=== PATIENT | male | born 1945 | race Caucasian/White ===

== ENCOUNTER 2022-01-28 08:47 | Emergency (ER) | payer MEDICARE, OTHER ==
[~2022-01-28] VITALS: Ht 175.3 cm; Wt 95.3 kg
[~2022-01-28 08:47] MED LIST: CEFTRIAXON2 GM/50 ML IVP; CENTRUM SILVER1 EAC1 PO; CITALOPRAM HBR10 MG PO; FISH OIL QD; FUROSEMIDE20 MG PO; FUROSEMIDE40 MG PO; GENERLAC10 GM/15 M PO; HEPARIN SO5000 UNIT/ IV; LACTULOSE20 GM/30 M PO; LEVOFLOXACIN500 MG PO; MIDODRINE HCL5 MG PO; MULTIVITAMIN QD; NASONEX17 GM; OMEPRAZOLE; OMEPRAZOLE20 M1 PO; PRILOSEC20 MG PO; SPIRONOLACTONE100 MG PO; SPIRONOLACTONE50 MG PO; SUCRALFATE; TUMS; TUMS300 MG PO; VITAMIN D32000 UNIT PO; XIFAXAN550 MG PO; Z.0.PREDNISONE10 M1 PO; Z.1.AMOXICILLIN500 M PO; [UNRECOGNIZED DRUG - OTHER]; [UNRECOGNIZED DRUG - OTHER] PO; [UNRECOGNIZED DRUG - OTHER] PO
[2022-01-28 09:15] LABS: BASOPHILS # (AUTO) 0.1 (0.0-0.1); BASOPHILS % 0.9 % (0.0-1.0); EOSINOPHILS # (AUTO) 0.1 (0.0-0.4); EOSINOPHILS % 2.4 % (0.0-6.0); HEMATOCRIT 43.2 % (38.2-49.6); HEMOGLOBIN 14.4 g/dL (14.0-18.0); LYMPHOCYTES # (AUTO) 0.4 (1.0-3.2); MEAN CORPUSCULAR HEMOGLOBIN 33.8 pg (28-32); MEAN CORPUSCULAR HGB CONC 33.3 g/dL (31-35); MEAN CORPUSCULAR VOLUME 101.4 fL (81-99); MONOCYTES # (AUTO) 0.6 (0.2-0.8); MONOCYTES % 9.9 % (4.4-11.3); NEUTROPHILS # (AUTO) 4.7 (2.1-6.9); NEUTROPHILS % 80.6 % (38.7-80.0); PLATELET COUNT 84 x10e3/uL (140-360); RED BLOOD COUNT 4.26 x10e6/uL (4.3-5.7); RED CELL DISTRIBUTION WIDTH 13.4 % (11.7-14.4)
[2022-01-28 09:34] LABS: INR 1.14; PROTHROMBIN TIME 15.6 seconds (11.9-14.5)
[2022-01-28 09:35] LABS: PARTIAL THROMBOPLASTIN TIME 44.1 seconds (23.8-35.5)
[2022-01-28 09:49] LABS: ALBUMIN 3.4 g/dL (3.5-5.0); ANION GAP 13.9 mmol/L (8-16); CREATININE, SERUM 1.03 mg/dL (0.72-1.25); POTASSIUM 4.9 mmol/L (3.5-5.1)
[2022-01-28] MEDS ORDERED: FENTANYL CITRATE/PF 100MCG/2 ML INJ IV ONE (10:00)
[2022-01-28 10:47] LABS: CLARITY,URINE CLOUDY (CLEAR); COLOR,URINE YELLOW (YELLOW)
[2022-01-28 10:50] LABS: KETONES,URINE TRACE (NEGATIVE); LEUKOCYTE ESTERASE ,URINE MODERATE (NEGATIVE); NITRITE,URINE NEGATIVE (NEGATIVE); PROTEIN,URINE DIPSTICK NEGATIVE (NEGATIVE); URINE UROBILINOGEN 1 mg/dL (0.2 - 1)
[2022-01-28 10:51] LABS: BACTERIA,URINE MODERATE /HPF; CALCIUM OXALATE CRYSTALS,UR MODERATE (FEW); EPITHELIAL CELLS,URINE MANY /LPF; RBC,URINE 0-5 /HPF (0-5); WBC,URINE (MAN) >50 /HPF (0-5)
[2022-01-28] MEDS ORDERED: BACTRIM DS TAB1 EACH PO (11:42)
[2022-01-28] MEDS ORDERED: ACETAMINOPHEN 325 MG TAB PO ONE (12:00)
== END 2022-01-28 12:03 | disposition home or self-care (01) ==
LOC: ER 09:10
DX: M25.551 Pain in right hip (principal); K70.30 Alcoholic cirrhosis of liver without ascites; N18.9 Chronic kidney disease, unspecified; Z86.718 Personal history of other venous thrombosis and embolism
CPT/HCPCS: 36415; 72192; 80053; 81001; 85025; 85610; 85730; 93005; 99284; J0696; J3010; U0002

== ENCOUNTER 2022-05-31 12:52 | Emergency (ER) | payer MEDICARE, OTHER ==
[~2022-05-31] VITALS: Ht 175.3 cm; Wt 95.3 kg
[~2022-05-31 12:52] MED LIST changes: +BACTRIM DS TAB1 EACH PO
[2022-05-31] MEDS ORDERED: KETOROLAC TROMETHAMINE 30 MG/ML VIAL IM STA (13:37)
[2022-05-31] MEDS ORDERED: SODIUM CHLORIDE 0.9% 1000ML 1,000 ML IV SCH (14:45)
[2022-05-31 15:37] LABS: BASOPHILS # (AUTO) 0.1 (0.0-0.1); BASOPHILS % 0.4 % (0.0-1.0); EOSINOPHILS % 0.1 % (0.0-6.0); HEMATOCRIT 45.9 % (38.2-49.6); HEMOGLOBIN 15.1 g/dL (14.0-18.0); LYMPHOCYTES # (AUTO) 0.3 (1.0-3.2); LYMPHOCYTES % 2.1 % (18.0-39.1); MEAN CORPUSCULAR HEMOGLOBIN 33.8 pg (28-32); MEAN CORPUSCULAR HGB CONC 32.9 g/dL (31-35); MEAN CORPUSCULAR VOLUME 102.7 fL (81-99); MONOCYTES # (AUTO) 0.6 (0.2-0.8); MONOCYTES % 5.3 % (4.4-11.3); NEUTROPHILS # (AUTO) 10.9 (2.1-6.9); NEUTROPHILS % 91.8 % (38.7-80.0); PLATELET COUNT 80 x10e3/uL (140-360); RED BLOOD COUNT 4.47 x10e6/uL (4.3-5.7); RED CELL DISTRIBUTION WIDTH 13.2 % (11.7-14.4)
[2022-05-31 15:45] LABS: CLARITY,URINE SL CLOUDY (CLEAR); COLOR,URINE AMBER (YELLOW); KETONES,URINE TRACE (NEGATIVE); LEUKOCYTE ESTERASE ,URINE SMALL (NEGATIVE); NITRITE,URINE NEGATIVE (NEGATIVE); PROTEIN,URINE DIPSTICK TRACE (NEGATIVE); URINE UROBILINOGEN 1 mg/dL (0.2 - 1)
[2022-05-31 15:57] LABS: ALBUMIN 3.5 g/dL (3.5-5.0); ALBUMIN/GLOBULIN RATIO 0.9 (0.8-2.0); ANION GAP 15.3 mmol/L (8-16); CALCIUM 9.5 mg/dL (8.4-10.2); CREATININE, SERUM 1.18 mg/dL (0.72-1.25); POTASSIUM 4.3 mmol/L (3.5-5.1)
[2022-05-31 15:57] LABS: BACTERIA,URINE MODERATE /HPF; RENAL EPITHELIAL CELLS,URINE RARE; TRANSITIONAL EPI CELLS,URINE FEW
[2022-05-31] MEDS ORDERED: MONUROL3 GM PO (16:10)
== END 2022-05-31 16:45 | disposition home or self-care (01) ==
LOC: ER 12:56
DX: R50.9 Fever, unspecified (principal); M79.10 Myalgia, unspecified site; N39.0 Urinary tract infection, site not specified; K76.9 Liver disease, unspecified; R19.7 Diarrhea, unspecified; N18.9 Chronic kidney disease, unspecified; K21.9 Gastro-esophageal reflux disease without esophagitis; F32.A Depression, unspecified; Z20.822 Contact with and (suspected) exposure to COVID-19; Z86.718 Personal history of other venous thrombosis and embolism
CPT/HCPCS: 36415; 71045; 80053; 81001; 83605; 85025; 87040; 87086; 87400; 99282; J1885; J7030; U0002

== ENCOUNTER 2024-05-13 10:49 | Emergency (ER) | payer MEDICARE, OTHER ==
[~2024-05-13] VITALS: Ht 175.3 cm; Wt 95.3 kg
[~2024-05-13 10:49] MED LIST changes: +MONUROL3 GM PO
[2024-05-13 11:23] VITALS: PULSE 83; RESP 19; TEMP 98.3; O2SAT 98
[2024-05-13] MEDS ORDERED: PREDNISONE20 MG PO (13:19)
== END 2024-05-13 14:08 | disposition home or self-care (01) ==
LOC: ER 11:05
DX: R05.9 Cough, unspecified (principal); B34.9 Viral infection, unspecified; K76.9 Liver disease, unspecified; K21.9 Gastro-esophageal reflux disease without esophagitis; F32.A Depression, unspecified; M54.9 Dorsalgia, unspecified; G89.29 Other chronic pain; Z86.718 Personal history of other venous thrombosis and embolism
CPT/HCPCS: 71045; 99284

== ENCOUNTER 2024-06-07 11:22 | Emergency (ER) | payer MEDICARE, OTHER ==
[~2024-06-07] VITALS: Ht 175.3 cm; Wt 95.3 kg
[~2024-06-07 11:22] MED LIST changes: +PREDNISONE20 MG PO
[2024-06-07 11:31] VITALS: PULSE 77; RESP 17; TEMP 98.3; O2SAT 100
[2024-06-07] MEDS ORDERED: FOSFOMYCIN TROME3 GM PO (12:00)
== END 2024-06-07 12:08 | disposition home or self-care (01) ==
LOC: ER 11:33
DX: N39.0 Urinary tract infection, site not specified (principal); K76.9 Liver disease, unspecified; N18.9 Chronic kidney disease, unspecified; K21.9 Gastro-esophageal reflux disease without esophagitis; F32.A Depression, unspecified; M54.9 Dorsalgia, unspecified; G89.29 Other chronic pain; Z86.718 Personal history of other venous thrombosis and embolism
CPT/HCPCS: 99282